=== PATIENT | female | born 1950 | race Caucasian/White ===

== ENCOUNTER 2017-04-28 07:49 | Emergency (ER) | payer MEDICARE, OTHER ==
--- NOTE | ~2017-04-28 | ER ---
PATIENT'S NAME: QING MORATAYA [facility] AGE: 67 Y [address] ROOM: [place] [address] LOCATION: ED ADMIT DATE: 04/28/2017 ER/Outpatient Report DISCHARGE DATE: 04/28/2017 FAMILY PHYSICIAN: Tree Ren MD ATTENDING PHYSICIAN: Orlando Cornelius TIME OF ARRIVAL: 0749 hours. TIME OF EVALUATION: 0753 hours. CHIEF COMPLAINT: Nosebleed. HISTORY OF PRESENT ILLNESS: The patient is a 67-year-old female who presents to the emergency department today with a chief complaint of nosebleed. She reports it started at 7 o'clock this morning. She took a new agdf-kti-fvwzafe medicine for her knee and she is concerned that it may be causing her bleeding. She denies any fevers or chills. No nausea or vomiting. No diarrhea or constipation. No history of nosebleeds in the past. PAST MEDICAL HISTORY: Osteoarthritis, voice tremor, pseudogout, and back pain. PAST SURGICAL HISTORY: Lumbar fusion, tonsillectomy, hammertoe, carpal tunnel, breast biopsy, partial thyroidectomy, and trigger thumb repair. SOCIAL HISTORY: The patient is , lives in [place]. She is retired. She denies any tobacco use. She reports occasional alcohol use. She denies illicit drug use. ALLERGIES: NO KNOWN DRUG ALLERGIES. MEDICATIONS: Please see list. PRIMARY CARE DOCTOR: Tree Ren MD. REVIEW OF SYSTEMS: PATIENT'S NAME: QING MORATAYA [facility] AGE: 67 Y [address] ROOM: [place] [address] LOCATION: ED ADMIT DATE: 04/28/2017 ER/Outpatient Report DISCHARGE DATE: 04/28/2017 FAMILY PHYSICIAN: Tree Ren MD ATTENDING PHYSICIAN: Orlando Cornelius All systems are reviewed by myself and are negative with the exception of those discussed in the HPI and past medical history. PHYSICAL EXAMINATION: VITAL SIGNS: Weight 198 pounds, blood pressure 176/112, pulse 102, respiratory rate 20, temperature 98.0, and oxygen saturation 97% on room air. GENERAL: The patient is a 67-year-old female, who appears stated age with active nosebleed. Well developed and well nourished. HEENT: Head: Normocephalic and atraumatic. Pupils are equal, round, and reactive to light. Left nares with bright red blood. Oropharynx is clear. NECK: Supple. There is no nuchal rigidity. CARDIOVASCULAR: Regular rate and rhythm. No murmurs, rubs, or gallops. LUNGS: Clear to auscultation bilaterally. No wheezes, rales, or rhonchi. ABDOMEN: Soft, nontender, and nondistended. No rebound, rigidity, or guarding. MUSCULOSKELETAL: The patient moves all 4 extremities. SKIN: Warm and dry. LABORATORY DATA AND X-RAYS: Labs and x-rays are obtained. CBC is unremarkable. Coags are normal. CMP is unremarkable. LFTs are normal. IMPRESSION: 1. Epistaxis. 2. Elevated blood pressure. 3. Initial visit. EMERGENCY DEPARTMENT COURSE: The patient was brought back to the examination room. Seen and evaluated by myself. History and physical performed as described above. IV is established. Afrin is instilled into the nares, pressure is held for 15 minutes. The area is visualized. The bleeding areas noted on the anterior portion of the turbinates. Silver nitrate is used to cauterize this area. It does continue to ooze. The patient's blood pressure is noted to be elevated. She was initially going to be given some labetalol; however, she did have a vasovagal-type symptom with the IV insertion. Thus, this was not given. The patient's blood pressure did continue to trend upwards. She was given hydrochlorothiazide orally. The nose did not continue to bleed. I did discuss with her that I have recommended she follows up with Ear, Nose, and Throat. I have also asked she follows up with Dr. Ren in 2 to 3 days for re-evaluation. I have discussed return to care instructions including worsening of symptoms or any other concerns to return to the emergency department as soon as possible. The patient is agreeable without further questions at that time. PATIENT'S NAME: QING MORATAYA [facility] AGE: 67 Y [address] ROOM: [place] [address] LOCATION: ED ADMIT DATE: 04/28/2017 ER/Outpatient Report DISCHARGE DATE: 04/28/2017 FAMILY PHYSICIAN: Tree Ren MD ATTENDING PHYSICIAN: Orlando Cornelius DISPOSITION: The patient is discharged to home in good condition. DO AQUILINO KWON/isiahl /[id number] d: 04/28/17 1424 t: 04/28/17 1449, OUTPATIENT REPORT
[2017-04-28 09:03] LABS: BASOPHIL % 0.8 %; EOSINOPHIL # 0.2 K/uL (0.0-0.5); EOSINOPHIL % 3.9 %; HEMATOCRIT 37.6 % (33.0-46.0); HEMOGLOBIN 12.6 g/dL (10.0-15.0); IMMATURE GRANULOCYTE % 0.4 %; LYMPHOCYTE # 1.2 K/uL (0.8-4.0); LYMPHOCYTE % 24.2 %; MCH 32.7 pg (27.0-34.0); MCHC 33.5 gm/dL (32.0-36.5); MCV 97.7 fl (83.0-98.0); MONOCYTE # 0.4 K/uL (0.0-1.0); MONOCYTE % 8.1 %; MPV 10.8 fl (9.4-12.4); NEUTROPHIL % 62.6 %; NRBC % 0 /100WBC (0-0.00); PLATELET COUNT 230 K/uL (150-450); RBC 3.85 M/uL (3.50-5.50); RDW-CV 13.2 % (11.9-14.6); WBC 4.8 K/uL (4.0-11.0)
[2017-04-28 09:05] LABS: INR - (THERAPEUTIC) 0.99 (0.92-1.07); PROTIME 10.4 SECONDS (9.8-11.4); PTT 26 SECONDS (25-32)
[2017-04-28 09:16] LABS: ALBUMIN 3.5 gm/dL (3.5-5.0); ALK PHOS 120 IU/L (33-138); ALT 37 IU/L (12-78); ANION GAP 10.9 (10.0-19.0); AST 32 IU/L (10-40); BLOOD UREA NITROGEN 21 mg/dL (6-24); CALCIUM 8.7 mg/dL (8.5-10.5); CHLORIDE 109 mMol/L (96-110); CO2 26 mMol/L (22-32); CREATININE 0.6 mg/dL (0.5-1.1); POTASSIUM 3.9 mMol/L (3.7-5.1); SODIUM 142 mMol/L (135-145); TOTAL BILIRUBIN 0.3 mg/dL (0.0-1.5); TOTAL PROTEIN 7.2 g/dL (6.0-8.4)
== END 2017-04-28 09:55 | disposition disaster alternative care site (69) ==
LOC: GMED 07:49
PROVIDERS: Emergency Medicine
PROC: 0W3Q3ZZ Control Bleeding in Respiratory Tract, Percutaneous Approach (ICD-10-PCS; principal; 2017-04-28)
DX: R04.0 Epistaxis (principal); R03.0 Elevated blood-pressure reading, without diagnosis of hypertension; M19.90 Unspecified osteoarthritis, unspecified site; R25.1 Tremor, unspecified; Z98.1 Arthrodesis status; Z90.89 Acquired absence of other organs; Z98.890 Other specified postprocedural states; Z79.891 Long term (current) use of opiate analgesic; Z79.899 Other long term (current) drug therapy
CPT/HCPCS: A9270; J7030

== ENCOUNTER → 2017-04-28 | Outpatient (CLI) | payer MEDICARE, OTHER ==
[~2017-04-28] MED LIST: DELTASONE5 MG PO; FLEXERIL10 MG PO; IBUPROFEN800 MG PO; INDERAL XL120 MG PO; INDERAL10 MG PO; MOTRIN800 MG PO; NAPROSYN500 M1 PO; NEURONTIN300 MG PO; PERCOCET 5-3251 EACH PO; PRILOSEC20 MG PO; TYLENOL EXTRA500 MG PO; ULTRAM50 MG PO
== END ==
LOC: GKIC 09:00
DX: M25.562 Pain in left knee (principal); M25.462 Effusion, left knee